=== PATIENT | female | born 1945 | race Caucasian/White ===

== ENCOUNTER 2022-10-09 08:08 | Emergency (ER) | payer MEDICARE, OTHER ==
[~2022-10-09] VITALS: Ht 167.6 cm; Wt 88.0 kg
[2022-10-09 08:26] VITALS: BP 151/69
[2022-10-09 10:39] LABS: CLARITY,URINE CLOUDY (Clear); COLOR,URINE YELLOW (Yellow); GLUCOSE, URINE NEGATIVE (Neg); KETONES,URINE NEGATIVE (Neg); LEUKOCYTE ESTERASE ,URINE MODERATE (Neg); NITRITES, URINE POSITIVE (Neg); OCCULT BLOOD,URINE SMALL (Neg); PH,URINE 6.5 (4.8-8.0); PROTEIN,URINE NEGATIVE (Neg); UROBILINOGEN,URINE 0.2 E.U/dL (0.2-1.0)
[2022-10-09 10:43] LABS: UA COLLECTION TYPE CLN CATCH MIDSTREAM
[2022-10-09 10:44] LABS: BACTERIA,URINE 1+ /HPF (Neg); MUCUS STRANDS NONE SEEN /LPF (Neg); RBC,URINE 0-2 /HPF (0-2); WBC,URINE 50-100 /HPF (0-4)
[2022-10-09 10:45] LABS: SQUAMOUS EPITHELIAL CELL,UR FEW /LPF (FEW)
[2022-10-09] MEDS ORDERED: FOSFOMYCIN TROMETHAMINE 3 GM PACKET PO ONE (11:00)
[2022-10-09] MEDS ORDERED: NITR100C6 PO (11:02)
== END 2022-10-09 11:23 | disposition home or self-care (01) ==
LOC: ER 08:09
DX: N39.0 Urinary tract infection, site not specified (principal); Z79.899 Other long term (current) drug therapy
CPT/HCPCS: 81001; 87077; 87088; 87186; 99283

== ENCOUNTER 2024-04-02 12:49 | Inpatient (IN) | payer MEDICARE, OTHER ==
[~2024-04-02] VITALS: Ht 167.6 cm; Wt 87.2 kg
[~2024-04-02 12:49] MED LIST: NITR100C6 PO
[2024-04-02 14:16] LABS: BASOPHILS % (AUTO) 0.2 % (0-1); EOSINOPHILS % (AUTO) 0.1 % (0-6); HEMATOCRIT 40.6 % (35.0-45.0); HEMOGLOBIN 12.9 g/dl (12.0-16.0); LYMPHOCYTES # (AUTO) 0.7 X10'3 (1.1-4.8); LYMPHOCYTES % (AUTO) 4.7 % (21-51); MEAN CORPUSCULAR HEMOGLOBIN 28.5 PG (27.0-31.0); MEAN CORPUSCULAR HGB CONC 31.8 g/dL (33.0-36.5); MEAN CORPUSCULAR VOLUME 89.8 FL (78-98); MEAN PLATELET VOLUME 8.6 FL (7.4-10.4); MONOCYTES # (AUTO) 0.5 X10'3 (0-0.9); MONOCYTES % (AUTO) 3.6 % (2-12); NEUTROPHILS # (AUTO) 12.7 X10'3 (1.8-7.7); NEUTROPHILS % (AUTO) 91.4 % (42-75); PLATELET COUNT 251 X10'3 (140-440); RED BLOOD COUNT 4.52 X10'6 (4.20-5.60); RED CELL DISTRIBUTION WIDTH 15.3 % (11.5-14.5); WHITE BLOOD COUNT 13.9 X10'3 (4.5-11.0)
[2024-04-02 15:36] LABS: ALANINE AMINOTRANSFERASE 681 U/L (12-78); ALBUMIN 3.6 G/DL (3.4-5.0); ALBUMIN/GLOBULIN RATIO 1.2 (1.1-1.5); ALKALINE PHOSPHATASE 123 IU/L (46-116); ANION GAP 9 (8-16); BILIRUBIN,TOTAL 1.3 MG/DL (0.1-1.0); BLOOD UREA NITROGEN 19 MG/DL (7-18); BUN/CREATININE RATIO 22.6 (10.0-20.0); CALCIUM 8.9 MG/DL (8.5-10.1); CHLORIDE 106 MMOL/L (99-107); CREATININE 0.84 MG/DL (0.40-0.90); GLUCOSE 106 MG/DL (70-104); POTASSIUM 3.6 MMOL/L (3.5-5.1); SODIUM 142 MMOL/L (135-145); TOTAL CARBON DIOXIDE 26.9 MMOL/L (24-32); TOTAL PROTEIN 6.6 G/DL (6.4-8.2); eCRCL 55 ML/MIN; eGFR 66 ML/MIN
[2024-04-02 15:37] LABS: BILIRUBIN,URINE MODERATE (Neg); CLARITY,URINE SLIGHTLY CLOUDY (Clear); COLOR,URINE YELLOW (Yellow); GLUCOSE, URINE NEGATIVE (Neg); KETONES,URINE TRACE mg/dl (Neg); LEUKOCYTE ESTERASE ,URINE TRACE (Neg); NITRITES, URINE NEGATIVE (Neg); OCCULT BLOOD,URINE NEGATIVE (Neg); PH,URINE 7.5 (4.8-8.0); PROTEIN,URINE 30 mg/dl (Neg)
[2024-04-02 15:41] LABS: UA COLLECTION TYPE CLN CATCH MIDSTREAM
[2024-04-02 15:43] LABS: MUCUS STRANDS FEW /LPF (Neg); SQUAMOUS EPITHELIAL CELL,UR MANY /LPF (FEW)
[2024-04-02 15:45] LABS: BACTERIA,URINE FEW /HPF (Neg); TRANSITIONAL EPI CELLS,URINE FEW /HPF
[2024-04-02] MEDS: ondansetron/PF 4mg/2ml inj IV ONE (16:05)
[2024-04-02] MEDS: acetaminophen 1,000mg/100ml IV 100 ML IV ONE (16:05)
[2024-04-02] MEDS ORDERED: iohexol 300mg/ml 100ml inj. ONE (16:45)
[2024-04-02 17:07] LABS: ASPARTATE AMINO TRANSFERASE 1438 U/L (10-37); LIPASE > 375 U/L (16-77)
[2024-04-02] MEDS: HYDROmorphone inj. 0.5 MG/0.5 ML DISP.SYRIN IV ONE (19:44)
[2024-04-02] MEDS: normal saline 1000ml 1,000 ML IV ONE (19:45)
[2024-04-02] MEDS ORDERED: LISI10TA27 (19:49)
[2024-04-02] MEDS ORDERED: morphine 2 MG/ML inj. syringe IV PRN (19:50)
[2024-04-02] MEDS ORDERED: magnesium sulf-water 4G/100mL 100 ML IV PRN (19:50)
[2024-04-02] MEDS ORDERED: potassium Cl 20 mEq SR tablet PO PRN ×2 (19:50)
[2024-04-02] MEDS ORDERED: magnesium sulf-water 2g/50mL 50 ML IV PRN (19:50)
[2024-04-02] MEDS ORDERED: HYDROcodone/acetaminophen 5mg/325mg tablet PO PRN (19:50)
[2024-04-02] MEDS ORDERED: magnesium hydroxide 30ml (MOM) UD suspension PO PRN (19:50)
[2024-04-02] MEDS ORDERED: magnesium Cl slow-release 64mg tablet PO PRN (19:50)
[2024-04-02] MEDS ORDERED: potassium Cl 40MEQ/1/2NS 520ml 520 ML IV PRN (19:50)
[2024-04-02] MEDS: K and/or MAG REPLACEMENT MC SCH (20:00)
[2024-04-02] MEDS: docusate sod 100mg capsule PO SCH (20:00)
[2024-04-02 20:26] LABS: C-REACTIVE PROTEIN 0.16 MG/DL (0.0-0.5); LACTATE DEHYDROGENASE 756 U/L (81-234)
[2024-04-02] MEDS: enoxaparin 40mg/0.4ml syringe SQ SCH (20:43)
[2024-04-02] MEDS: ringers solution, lacted 1,000 ML IV SCH (20:43)
[2024-04-02] MEDS: levoFLOXACIN-Levaquin 750MG/D5 150 ML IV SCH (21:13)
[2024-04-02] MEDS: ondansetron/PF 4mg/2ml inj IV PRN (22:24)
[2024-04-02 22:30] VITALS: BP 135/53; PULSE 78; RESP 16; TEMP 99.1; O2SAT 96
[2024-04-02] MEDS: metroNIDAZOLE-Flagyl 500mg/NS 100 ML IV SCH (23:43)
[2024-04-02] MEDS: HYDROmorphone inj. 0.5 MG/0.5 ML DISP.SYRIN IV PRN (23:45)
[2024-04-03 06:00] VITALS: BP 106/33; PULSE 79; RESP 15; TEMP 97.6; O2SAT 97
[2024-04-03 07:07] LABS: BASOPHILS % (AUTO) 0.2 % (0-1); EOSINOPHILS % (AUTO) 0.1 % (0-6); HEMATOCRIT 34.7 % (35.0-45.0); HEMOGLOBIN 11.4 g/dl (12.0-16.0); LYMPHOCYTES # (AUTO) 1.1 X10'3 (1.1-4.8); LYMPHOCYTES % (AUTO) 7.8 % (21-51); MEAN CORPUSCULAR HEMOGLOBIN 29.4 PG (27.0-31.0); MEAN CORPUSCULAR HGB CONC 32.9 g/dL (33.0-36.5); MEAN CORPUSCULAR VOLUME 89.3 FL (78-98); MEAN PLATELET VOLUME 8.8 FL (7.4-10.4); MONOCYTES # (AUTO) 0.6 X10'3 (0-0.9); MONOCYTES % (AUTO) 4.2 % (2-12); NEUTROPHILS # (AUTO) 12.4 X10'3 (1.8-7.7); NEUTROPHILS % (AUTO) 87.7 % (42-75); PLATELET COUNT 211 X10'3 (140-440); RED BLOOD COUNT 3.89 X10'6 (4.20-5.60); RED CELL DISTRIBUTION WIDTH 14.7 % (11.5-14.5); WHITE BLOOD COUNT 14.1 X10'3 (4.5-11.0)
[2024-04-03 07:17] LABS: ALANINE AMINOTRANSFERASE 994 U/L (12-78); ALBUMIN 2.7 G/DL (3.4-5.0); ALBUMIN/GLOBULIN RATIO 0.9 (1.1-1.5); ALKALINE PHOSPHATASE 139 IU/L (46-116); ANION GAP 7 (8-16); ASPARTATE AMINO TRANSFERASE 962 U/L (10-37); BILIRUBIN,TOTAL 3.5 MG/DL (0.1-1.0); BLOOD UREA NITROGEN 19 MG/DL (7-18); BUN/CREATININE RATIO 21.3 (10.0-20.0); CALCIUM 8.1 MG/DL (8.5-10.1); CHLORIDE 107 MMOL/L (99-107); CHOL/HDL RATIO 2.3 (0.00-4.99); CHOLESTEROL 166 MG/DL (0-200); CREATININE 0.89 MG/DL (0.40-0.90); GLUCOSE 95 MG/DL (70-104); HDL CHOLESTEROL 71 MG/DL (35-60); LDL CHOLESTEROL 81 MG/DL (50-100); MAGNESIUM 1.9 MG/DL (1.5-2.4); POTASSIUM 4.2 MMOL/L (3.5-5.1); SODIUM 142 MMOL/L (135-145); TOTAL CARBON DIOXIDE 27.9 MMOL/L (24-32); TOTAL PROTEIN 5.6 G/DL (6.4-8.2); TRIGLYCERIDES 29 MG/DL (20-135); eCRCL 51 ML/MIN; eGFR 62 ML/MIN
[2024-04-03 07:58] LABS: LIPASE > 375 U/L (16-77)
[2024-04-03 08:00] VITALS: RESP 16; O2SAT 97
[2024-04-03] MEDS: lisinopril 10 MG tablet PO SCH (08:28)
[2024-04-03 10:00] VITALS: BP 138/55; PULSE 78; RESP 18; TEMP 98.8; O2SAT 93
[2024-04-03 18:00] VITALS: BP 140/59; PULSE 85; RESP 14; TEMP 98.7; O2SAT 90
[2024-04-03] MEDS: piperacillin/tazo 3.375gm/50ml 50 ML IV SCH (18:08)
[2024-04-03 22:00] VITALS: BP 113/45; PULSE 86; RESP 13; TEMP 98.3; O2SAT 91
[2024-04-04] VITALS (21 sets, daily range): BP systolic 115–167; BP diastolic 49–119; PULSE 70–102; RESP 12–18; TEMP 97.7–98.7; O2SAT 89–99
[2024-04-04 06:10] LABS: BASOPHILS % (AUTO) 0.1 % (0-1); EOSINOPHILS % (AUTO) 0.5 % (0-6); HEMATOCRIT 32.3 % (35.0-45.0); HEMOGLOBIN 10.8 g/dl (12.0-16.0); LYMPHOCYTES # (AUTO) 0.9 X10'3 (1.1-4.8); LYMPHOCYTES % (AUTO) 8.6 % (21-51); MEAN CORPUSCULAR HEMOGLOBIN 30.1 PG (27.0-31.0); MEAN CORPUSCULAR HGB CONC 33.5 g/dL (33.0-36.5); MEAN CORPUSCULAR VOLUME 89.9 FL (78-98); MEAN PLATELET VOLUME 9.1 FL (7.4-10.4); MONOCYTES # (AUTO) 0.6 X10'3 (0-0.9); MONOCYTES % (AUTO) 5.4 % (2-12); NEUTROPHILS # (AUTO) 8.9 X10'3 (1.8-7.7); NEUTROPHILS % (AUTO) 85.4 % (42-75); PLATELET COUNT 177 X10'3 (140-440); RED BLOOD COUNT 3.59 X10'6 (4.20-5.60); WHITE BLOOD COUNT 10.4 X10'3 (4.5-11.0)
[2024-04-04 06:13] LABS: ALANINE AMINOTRANSFERASE 514 U/L (12-78); ALBUMIN 2.3 G/DL (3.4-5.0); ALBUMIN/GLOBULIN RATIO 0.8 (1.1-1.5); ALKALINE PHOSPHATASE 128 IU/L (46-116); ANION GAP 10 (8-16); ASPARTATE AMINO TRANSFERASE 287 U/L (10-37); BILIRUBIN,TOTAL 1.6 MG/DL (0.1-1.0); BLOOD UREA NITROGEN 18 MG/DL (7-18); BUN/CREATININE RATIO 22.8 (10.0-20.0); CALCIUM 8.1 MG/DL (8.5-10.1); CHLORIDE 106 MMOL/L (99-107); CREATININE 0.79 MG/DL (0.40-0.90); GLUCOSE 78 MG/DL (70-104); MAGNESIUM 1.8 MG/DL (1.5-2.4); POTASSIUM 3.8 MMOL/L (3.5-5.1); SODIUM 141 MMOL/L (135-145); TOTAL CARBON DIOXIDE 25.2 MMOL/L (24-32); TOTAL PROTEIN 5.2 G/DL (6.4-8.2); eCRCL 58 ML/MIN; eGFR 71 ML/MIN
[2024-04-04 06:15] LABS: LIPASE > 375 U/L (16-77)
[2024-04-04] MEDS ORDERED: ondansetron/PF 4mg/2ml inj IV PRN (13:50)
[2024-04-04] MEDS ORDERED: morphine 2 MG/ML inj. syringe IV PRN (13:50)
[2024-04-04] MEDS: ringers solution, lacted 1,000 ML IV SCH (13:50)
[2024-04-04] MEDS ORDERED: morphine 4 MG/ML inj SYRINge IV PRN (13:50)
[2024-04-04] MEDS ORDERED: meperidine/PF 25mg/ml syringe IV PRN ×3 (13:50)
[2024-04-04] MEDS ORDERED: proCHLORperazine 10 MG/2 ml inj IV PRN (13:50)
[2024-04-04] MEDS ORDERED: glucagon, human recombinant 1mg kit ONE ×2 (13:57)
[2024-04-04] MEDS ORDERED: iohexol 300mg/ml 100ml inj. ONE ×2 (13:57)
[2024-04-04] MEDS ORDERED: fentaNYL/PF 50MCG/1 ML 2ML syringe ONE (14:12)
[2024-04-04] MEDS ORDERED: rocuronium 10mg/ml inj IV ONE (14:12)
[2024-04-04] MEDS ORDERED: propofol inj 20 ML IV ONE (14:12)
[2024-04-04] MEDS ORDERED: midazolam 1 mg/ML 2ml injection ONE (14:12)
[2024-04-04] MEDS ORDERED: sevoflurane 250ml liquid IH ONE (14:16)
[2024-04-04] MEDS ORDERED: dexamethasone sod phosphate 4mg/ml inj. ONE (14:44)
[2024-04-04] MEDS ORDERED: ondansetron/PF 4mg/2ml inj ONE (15:33)
[2024-04-04] MEDS ORDERED: sugammadex 200mg/2ml injection IV ONE (15:33)
[2024-04-04] MEDS: normal saline 1000ml 1,000 ML IV ONE (16:15)
[2024-04-05] VITALS (22 sets, daily range): BP systolic 127–188; BP diastolic 63–91; PULSE 68–112; RESP 9–18; TEMP 97.4–98; O2SAT 87–98
[2024-04-05 06:43] LABS: HBSAG SCREEN Negative (Negative); HEP A AB, IGM Negative (Negative); HEPATITIS C VIRUS ANTIBODY Non Reactive (Non Reactive)
[2024-04-05 07:10] LABS: BASOPHILS % (AUTO) 0.3 % (0-1); EOSINOPHILS % (AUTO) 0 % (0-6); HEMOGLOBIN 11.5 g/dl (12.0-16.0); LYMPHOCYTES # (AUTO) 0.7 X10'3 (1.1-4.8); LYMPHOCYTES % (AUTO) 10.7 % (21-51); MEAN CORPUSCULAR HEMOGLOBIN 29.5 PG (27.0-31.0); MEAN CORPUSCULAR VOLUME 89.4 FL (78-98); MEAN PLATELET VOLUME 8.9 FL (7.4-10.4); MONOCYTES # (AUTO) 0.2 X10'3 (0-0.9); MONOCYTES % (AUTO) 2.5 % (2-12); NEUTROPHILS # (AUTO) 5.9 X10'3 (1.8-7.7); NEUTROPHILS % (AUTO) 86.5 % (42-75); PLATELET COUNT 188 X10'3 (140-440); RED BLOOD COUNT 3.92 X10'6 (4.20-5.60); RED CELL DISTRIBUTION WIDTH 14.6 % (11.5-14.5); WHITE BLOOD COUNT 6.8 X10'3 (4.5-11.0)
[2024-04-05 07:17] LABS: ALANINE AMINOTRANSFERASE 366 U/L (12-78); ALBUMIN 2.3 G/DL (3.4-5.0); ALBUMIN/GLOBULIN RATIO 0.7 (1.1-1.5); ALKALINE PHOSPHATASE 139 IU/L (46-116); ANION GAP 8 (8-16); ASPARTATE AMINO TRANSFERASE 122 U/L (10-37); BILIRUBIN,TOTAL 0.9 MG/DL (0.1-1.0); BLOOD UREA NITROGEN 11 MG/DL (7-18); BUN/CREATININE RATIO 14.3 (10.0-20.0); CALCIUM 8.4 MG/DL (8.5-10.1); CHLORIDE 106 MMOL/L (99-107); CREATININE 0.77 MG/DL (0.40-0.90); GLUCOSE 97 MG/DL (70-104); LIPASE 65 U/L (16-77); MAGNESIUM 1.7 MG/DL (1.5-2.4); POTASSIUM 3.9 MMOL/L (3.5-5.1); SODIUM 141 MMOL/L (135-145); TOTAL PROTEIN 5.8 G/DL (6.4-8.2); eCRCL 60 ML/MIN; eGFR 73 ML/MIN
[2024-04-05] MEDS: acetaminophen 325mg tablet PO PRN (07:45)
[2024-04-05] MEDS: lisinopril 10 MG tablet PO SCH (08:00)
[2024-04-05] MEDS ORDERED: hydrALAZINE 20mg/ml inj. IV PRN (17:15)
[2024-04-05] MEDS ORDERED: proCHLORperazine 10 MG/2 ml inj IV PRN (17:15)
[2024-04-05] MEDS ORDERED: ondansetron/PF 4mg/2ml inj IV PRN (17:15)
[2024-04-05] MEDS ORDERED: meperidine/PF 25mg/ml syringe IV PRN ×2 (17:15)
[2024-04-05] MEDS ORDERED: labetalol 20mg/4ml (5mg/ml) syringe IV PRN (17:15)
[2024-04-05] MEDS ORDERED: morphine 2 MG/ML inj. syringe IV PRN (17:15)
[2024-04-05] MEDS ORDERED: sevoflurane 250ml liquid IH ONE (17:36)
[2024-04-05] MEDS ORDERED: midazolam 1 mg/ML 2ml injection ONE (17:42)
[2024-04-05] MEDS ORDERED: ceFOXitin 1000 MG inj ONE ×2 (18:07)
[2024-04-05] MEDS ORDERED: propofol inj 20 ML IV ONE (18:07)
[2024-04-05] MEDS ORDERED: fentaNYL /PF 50mcg/ml 5ml ampule ONE (18:07)
[2024-04-05] MEDS ORDERED: rocuronium 10mg/ml inj IV ONE (18:07)
[2024-04-05] MEDS ORDERED: LIDOcaine 2% (20mg/ml) 5ml vial ONE (18:07)
[2024-04-05] MEDS ORDERED: ondansetron/PF 4mg/2ml inj ONE (18:08)
[2024-04-05] MEDS ORDERED: dexamethasone sod phosphate 4mg/ml inj. ONE (18:08)
[2024-04-05] MEDS: BUPIVAcaine 2.5mg/ml inj 50ml vial (contains preservative) SQ ONE ×2 (18:47→19:01)
[2024-04-05] MEDS ORDERED: neostigmine methylsulfate 1 MG/ML 10ml vial ONE (19:10)
[2024-04-05] MEDS ORDERED: glycopyrrolate 0.2mg/ml inj ONE (19:10)
[2024-04-05] MEDS ORDERED: naloxone 0.4 mg/ml inj IV PRN (19:15)
[2024-04-05] MEDS: ringers solution, lacted 1,000 ML IV SCH (19:26)
[2024-04-05] MEDS: acetaminophen 1,000mg/100ml IV 100 ML IV ONE (19:29)
[2024-04-05] MEDS ORDERED: HYDROmorphone inj. 0.5 MG/0.5 ML DISP.SYRIN IV PRN (19:30)
[2024-04-05] MEDS: BUPIVAcaine 2.5mg/ml inj 50ml vial (contains preservative) ONE (19:32)
[2024-04-05] MEDS: meperidine/PF 25mg/ml syringe IV PRN (19:41)
[2024-04-05] MEDS: morphine 4 MG/ML inj SYRINge IV PRN (19:58)
[2024-04-05] MEDS: HYDROcodone/acetaminophen 5mg/325mg tablet PO PRN (20:23)
[2024-04-05] MEDS: enoxaparin 40mg/0.4ml syringe SQ SCH (22:10)
[2024-04-06] VITALS (10 sets, daily range): BP systolic 150–171; BP diastolic 64–90; PULSE 66–87; RESP 16; TEMP 96.2–98.5; O2SAT 89–100
[2024-04-06] MEDS: HYDROcodone/acetaminophen 10/325mg tab PO PRN (01:17)
[2024-04-06] MEDS: morphine 2 MG/ML inj. syringe IV PRN (03:52)
[2024-04-06 07:47] LABS: BASOPHILS % (AUTO) 0.3 % (0-1); EOSINOPHILS % (AUTO) 0 % (0-6); HEMATOCRIT 34.6 % (35.0-45.0); HEMOGLOBIN 11.4 g/dl (12.0-16.0); LYMPHOCYTES # (AUTO) 0.7 X10'3 (1.1-4.8); LYMPHOCYTES % (AUTO) 6.4 % (21-51); MEAN CORPUSCULAR HEMOGLOBIN 29.1 PG (27.0-31.0); MEAN CORPUSCULAR HGB CONC 32.9 g/dL (33.0-36.5); MEAN CORPUSCULAR VOLUME 88.3 FL (78-98); MEAN PLATELET VOLUME 8.8 FL (7.4-10.4); MONOCYTES # (AUTO) 0.5 X10'3 (0-0.9); MONOCYTES % (AUTO) 5.3 % (2-12); PLATELET COUNT 239 X10'3 (140-440); RED BLOOD COUNT 3.92 X10'6 (4.20-5.60); RED CELL DISTRIBUTION WIDTH 14.7 % (11.5-14.5); WHITE BLOOD COUNT 10.2 X10'3 (4.5-11.0)
[2024-04-06 08:29] LABS: ALANINE AMINOTRANSFERASE 266 U/L (12-78); ALBUMIN 2.3 G/DL (3.4-5.0); ALBUMIN/GLOBULIN RATIO 0.7 (1.1-1.5); ALKALINE PHOSPHATASE 110 IU/L (46-116); ANION GAP 9 (8-16); ASPARTATE AMINO TRANSFERASE 89 U/L (10-37); BILIRUBIN,TOTAL 0.9 MG/DL (0.1-1.0); BLOOD UREA NITROGEN 11 MG/DL (7-18); BUN/CREATININE RATIO 14.3 (10.0-20.0); CALCIUM 8.1 MG/DL (8.5-10.1); CHLORIDE 105 MMOL/L (99-107); CREATININE 0.77 MG/DL (0.40-0.90); GLUCOSE 95 MG/DL (70-104); LIPASE 29 U/L (16-77); MAGNESIUM 1.5 MG/DL (1.5-2.4); POTASSIUM 3.3 MMOL/L (3.5-5.1); SODIUM 142 MMOL/L (135-145); TOTAL CARBON DIOXIDE 28.5 MMOL/L (24-32); TOTAL PROTEIN 5.6 G/DL (6.4-8.2); eCRCL 57 ML/MIN; eGFR 73 ML/MIN
[2024-04-06] MEDS ORDERED: LISI10TA27 PO (09:59)
[2024-04-06] MEDS: amLODIPine 5mg tablet PO SCH (11:53)
[2024-04-06] MEDS ORDERED: magnesium Cl slow-release 64mg tablet PO PRN (14:25)
[2024-04-06] MEDS ORDERED: magnesium sulf-water 2g/50mL 50 ML IV PRN (14:25)
[2024-04-06] MEDS ORDERED: magnesium sulf-water 4G/100mL 100 ML IV PRN (14:25)
[2024-04-06] MEDS ORDERED: potassium Cl 40MEQ/1/2NS 520ml 520 ML IV PRN (14:25)
[2024-04-06] MEDS ORDERED: potassium Cl 20 mEq SR tablet PO PRN (14:25)
[2024-04-06] MEDS ORDERED: hydrALAZINE 20mg/ml inj. IV PRN (14:35)
[2024-04-06] MEDS: potassium Cl 20 mEq SR tablet PO PRN (14:43)
[2024-04-07 06:22] LABS: ALANINE AMINOTRANSFERASE 203 U/L (12-78); ALBUMIN 2.3 G/DL (3.4-5.0); ALBUMIN/GLOBULIN RATIO 0.7 (1.1-1.5); ALKALINE PHOSPHATASE 108 IU/L (46-116); ANION GAP 11 (8-16); ASPARTATE AMINO TRANSFERASE 57 U/L (10-37); BILIRUBIN,TOTAL 1.8 MG/DL (0.1-1.0); BLOOD UREA NITROGEN 9 MG/DL (7-18); CALCIUM 8.2 MG/DL (8.5-10.1); CHLORIDE 104 MMOL/L (99-107); GLUCOSE 73 MG/DL (70-104); LIPASE 35 U/L (16-77); MAGNESIUM 1.6 MG/DL (1.5-2.4); POTASSIUM 3.5 MMOL/L (3.5-5.1); SODIUM 144 MMOL/L (135-145); TOTAL CARBON DIOXIDE 29.3 MMOL/L (24-32); TOTAL PROTEIN 5.6 G/DL (6.4-8.2); eCRCL 49 ML/MIN; eGFR 61 ML/MIN
[2024-04-07 06:25] LABS: BASOPHILS % (AUTO) 0.3 % (0-1); EOSINOPHILS # (AUTO) 0.1 X10'3 (0-0.9); EOSINOPHILS % (AUTO) 0.7 % (0-6); HEMATOCRIT 35.4 % (35.0-45.0); HEMOGLOBIN 11.8 g/dl (12.0-16.0); LYMPHOCYTES # (AUTO) 2.6 X10'3 (1.1-4.8); LYMPHOCYTES % (AUTO) 26.3 % (21-51); MEAN CORPUSCULAR HEMOGLOBIN 29.6 PG (27.0-31.0); MEAN CORPUSCULAR HGB CONC 33.5 g/dL (33.0-36.5); MEAN CORPUSCULAR VOLUME 88.5 FL (78-98); MEAN PLATELET VOLUME 8.7 FL (7.4-10.4); MONOCYTES # (AUTO) 0.6 X10'3 (0-0.9); MONOCYTES % (AUTO) 6.2 % (2-12); NEUTROPHILS # (AUTO) 6.5 X10'3 (1.8-7.7); NEUTROPHILS % (AUTO) 66.5 % (42-75); PLATELET COUNT 275 X10'3 (140-440); RED CELL DISTRIBUTION WIDTH 14.8 % (11.5-14.5); WHITE BLOOD COUNT 9.8 X10'3 (4.5-11.0)
[2024-04-07 06:48] VITALS: BP 165/60; PULSE 80; RESP 14; TEMP 98; O2SAT 95
[2024-04-07] MEDS: amLODIPine 5mg tablet PO SCH (07:55)
[2024-04-07 08:00] VITALS: RESP 16; O2SAT 96
[2024-04-07] MEDS: lactose-reduced food (Ensure Enlive) - 237ml bottle PO SCH (13:00)
[2024-04-07 18:00] VITALS: BP 151/59; PULSE 84; RESP 14; TEMP 98.4; O2SAT 92
[2024-04-07 20:00] VITALS: RESP 14; O2SAT 93
[2024-04-07 22:00] VITALS: BP 139/59; PULSE 86; RESP 14; TEMP 97.1; O2SAT 93
[2024-04-08 06:04] LABS: ALANINE AMINOTRANSFERASE 145 U/L (12-78); ALBUMIN/GLOBULIN RATIO 0.7 (1.1-1.5); ALKALINE PHOSPHATASE 109 IU/L (46-116); ANION GAP 6 (8-16); ASPARTATE AMINO TRANSFERASE 48 U/L (10-37); BILIRUBIN,TOTAL 3.6 MG/DL (0.1-1.0); BLOOD UREA NITROGEN 4 MG/DL (7-18); BUN/CREATININE RATIO 5.7 (10.0-20.0); CHLORIDE 106 MMOL/L (99-107); GLUCOSE 109 MG/DL (70-104); POTASSIUM 3.3 MMOL/L (3.5-5.1); SODIUM 143 MMOL/L (135-145); TOTAL CARBON DIOXIDE 31.4 MMOL/L (24-32); TOTAL PROTEIN 4.9 G/DL (6.4-8.2); eCRCL 63 ML/MIN; eGFR 81 ML/MIN
[2024-04-08 07:13] VITALS: BP 154/58; PULSE 83; RESP 16; TEMP 97.6; O2SAT 96
[2024-04-08 08:00] VITALS: RESP 16
[2024-04-08 10:00] VITALS: BP 148/53; PULSE 80; RESP 16; TEMP 97.6; O2SAT 95
[2024-04-08] MEDS: metoclopramide 5 mg/ml inj IV PRN (17:38)
[2024-04-08 18:00] VITALS: BP 155/63; PULSE 83; RESP 16; TEMP 97.1; O2SAT 96
[2024-04-08 20:30] VITALS: RESP 18
[2024-04-08 22:00] VITALS: BP 121/50; PULSE 80; RESP 20; TEMP 97.3; O2SAT 95
[2024-04-09] VITALS (15 sets, daily range): BP systolic 121–158; BP diastolic 48–66; PULSE 70–95; RESP 14–20; TEMP 96.7–97.6; O2SAT 92–99
[2024-04-09 04:16] LABS: ANION GAP 3 (8-16); BILIRUBIN,TOTAL 1.8 MG/DL (0.1-1.0); BLOOD UREA NITROGEN 3 MG/DL (7-18); BUN/CREATININE RATIO 4.1 (10.0-20.0); CALCIUM 8.3 MG/DL (8.5-10.1); CHLORIDE 107 MMOL/L (99-107); CREATININE 0.73 MG/DL (0.40-0.90); GLUCOSE 91 MG/DL (70-104); POTASSIUM 3.6 MMOL/L (3.5-5.1); SODIUM 141 MMOL/L (135-145); TOTAL CARBON DIOXIDE 31.5 MMOL/L (24-32); TOTAL PROTEIN 5.6 G/DL (6.4-8.2); eCRCL 60 ML/MIN; eGFR 77 ML/MIN
[2024-04-09 04:17] LABS: ALANINE AMINOTRANSFERASE 124 U/L (12-78); ALBUMIN 2.2 G/DL (3.4-5.0); ALBUMIN/GLOBULIN RATIO 0.6 (1.1-1.5); ALKALINE PHOSPHATASE 131 IU/L (46-116); ASPARTATE AMINO TRANSFERASE 29 U/L (10-37)
[2024-04-09] MEDS: metroNIDAZOLE-Flagyl 500mg/NS 100 ML IV SCH (09:45)
[2024-04-09] MEDS ORDERED: iohexol 300 MG/1 ML 50ml polymer ONE (13:20)
[2024-04-09] MEDS ORDERED: diphenhydrAMINE 50 mg/ml inj ONE (13:21)
[2024-04-09] MEDS ORDERED: glucagon, human recombinant 1mg kit ONE (13:21)
[2024-04-09] MEDS ORDERED: LIDOcaine 2% Viscous 15ml cup ONE (13:21)
[2024-04-09] MEDS ORDERED: fentaNYL/PF 50MCG/1 ML 2ML syringe ONE (14:16)
[2024-04-09] MEDS ORDERED: MIDAZolam 1 MG/ML 5ML VIAL ONE (14:16)
[2024-04-09] MEDS ORDERED: simethicone 40mg/0.6ml oral drops 30ml ONE (14:18)
[2024-04-10 05:02] LABS: ALANINE AMINOTRANSFERASE 83 U/L (12-78); ALBUMIN/GLOBULIN RATIO 0.7 (1.1-1.5); ALKALINE PHOSPHATASE 116 IU/L (46-116); ANION GAP 5 (8-16); ASPARTATE AMINO TRANSFERASE 23 U/L (10-37); BILIRUBIN,TOTAL 1.2 MG/DL (0.1-1.0); BLOOD UREA NITROGEN 5 MG/DL (7-18); BUN/CREATININE RATIO 7.8 (10.0-20.0); CALCIUM 8.2 MG/DL (8.5-10.1); CHLORIDE 106 MMOL/L (99-107); CREATININE 0.64 MG/DL (0.40-0.90); GLUCOSE 94 MG/DL (70-104); POTASSIUM 3.8 MMOL/L (3.5-5.1); SODIUM 141 MMOL/L (135-145); TOTAL CARBON DIOXIDE 29.9 MMOL/L (24-32); eCRCL 69 ML/MIN; eGFR 90 ML/MIN
[2024-04-10 06:00] VITALS: BP 143/56; PULSE 75; RESP 16; TEMP 97.7; O2SAT 96
[2024-04-10 08:00] VITALS: RESP 14; O2SAT 97
[2024-04-10 11:01] VITALS: BP 136/68; PULSE 93; RESP 18; TEMP 98.3; O2SAT 97
[2024-04-10] MEDS ORDERED: NOR5T PO (17:53)
== END 2024-04-10 18:25 | disposition home or self-care (01) | DRG 417 ==
LOC: ER 12:50 → ED HOLD 19:55 → ORTHO 4S 22:05 → SUR 3N 04-06 17:40
PROVIDERS: ADMIT Internal Medicine Critical Care Medicine; ATTEND Nurse Practitioner Family
PROC: 0FC98ZZ Extirpation of Matter from Common Bile Duct, Via Natural or Artificial Opening Endoscopic (ICD-10-PCS; 2024-04-04)
PROC: BF101ZZ Fluoroscopy of Bile Ducts using Low Osmolar Contrast (ICD-10-PCS; 2024-04-04)
PROC: 8E0W4CZ Robotic Assisted Procedure of Trunk Region, Percutaneous Endoscopic Approach (ICD-10-PCS; 2024-04-05)
PROC: 0FT44ZZ Resection of Gallbladder, Percutaneous Endoscopic Approach (ICD-10-PCS; principal; 2024-04-05 17:36)
DX: K80.62 Calculus of gallbladder and bile duct with acute cholecystitis without obstruction (principal); K85.10 Biliary acute pancreatitis without necrosis or infection; J94.2 Hemothorax; F41.9 Anxiety disorder, unspecified; F32.A Depression, unspecified; I10 Essential (primary) hypertension; R74.01 Elevation of levels of liver transaminase levels; R74.8 Abnormal levels of other serum enzymes; Z85.828 Personal history of other malignant neoplasm of skin
CPT/HCPCS: 36415; 43262; 43264; 43274; 71045; 74177; 74181; 76700; 80053; 80061; 81001; 82948; 83605; 83615; 83690; 83735; 84145; 85025; 86140; 86709; 86803; 87081; 87340; 87522; 93005; 96374; 96375; 99152; 99153; 99285; A4215; A4615; A4618; A4620; A6212; A6258; A6449; A7000; C1769; C2625; G0378; J0131; J0694; J1100; J1170; J1200; J1610; J1650; J1956; J2175; J2250; J2270; J2405; J2543; J2704; J2710; J2765; J3010; J3490; J7030; J7040; J7120; Q9967